=== PATIENT | female | born 1995 | race Two or more races ===

== ENCOUNTER 2017-12-30 10:19 | Emergency (ER) | payer OTHER ==
[~2017-12-30] VITALS: Ht 154.9 cm; Wt 68.5 kg
[2017-12-30] MEDS ORDERED: CEFADROXIL500 MG (10:45)
[2017-12-30] MEDS ORDERED: PRENATAL 19 TA1 EAC1 (10:45)
== END 2017-12-30 16:30 ==
LOC: ER 10:19
DX: O98.511 Other viral diseases complicating pregnancy, first trimester (principal); B34.9 Viral infection, unspecified; Z34.01 Encounter for supervision of normal first pregnancy, first trimester

== ENCOUNTER 2018-03-08 09:21 | Outpatient (CLI) | payer OTHER ==
[~2018-03-08 09:21] MED LIST: CEFADROXIL500 MG; PRENATAL 19 TA1 EAC1
== END 2018-03-09 13:00 | disposition home or self-care (01) ==
LOC: OBS/DEL 09:21 → LDR 09:22 → OBS/DEL 14:47
DX: O47.02 False labor before 37 completed weeks of gestation, second trimester (principal); Z3A.23 23 weeks gestation of pregnancy; N39.0 Urinary tract infection, site not specified

== ENCOUNTER 2018-03-28 22:51 | Outpatient (CLI) | payer OTHER | END 2018-03-29 07:27 | disposition home or self-care (01) | LOC: OBS/DEL 22:51 | DX: O60.02 Preterm labor without delivery, second trimester (principal); Z34.02 Encounter for supervision of normal first pregnancy, second trimester ==

== ENCOUNTER 2018-06-18 11:48 | Outpatient (CLI) | payer OTHER | END 2018-06-19 10:19 | disposition home or self-care (01) | LOC: OBS/DEL 11:48 | DX: O47.1 False labor at or after 37 completed weeks of gestation (principal); Z34.03 Encounter for supervision of normal first pregnancy, third trimester ==

== ENCOUNTER 2018-06-27 20:54 | Inpatient (IN) | payer OTHER ==
[~2018-06-27] VITALS: Ht 154.9 cm; Wt 77.1 kg
[2018-06-27] MEDS ORDERED: PRENATAL TABLE1 EAC1 PO (21:02)
== END 2018-06-30 16:33 | DRG 775 ==
LOC: OB/GYN 20:54 → LDR 20:54 → OB/GYN 06-28 16:56
PROC: 10E0XZZ Delivery of Products of Conception, External Approach (ICD-10-PCS; principal; 2018-06-28)
PROC: 0W8NXZZ Division of Female Perineum, External Approach (ICD-10-PCS; 2018-06-28)
PROC: 4A033R1 Measurement of Arterial Saturation, Peripheral, Percutaneous Approach (ICD-10-PCS; 2018-06-28)
PROC: 4A1HXCZ Monitoring of Products of Conception, Cardiac Rate, External Approach (ICD-10-PCS; 2018-06-28)
DX: O80 Encounter for full-term uncomplicated delivery (principal); Z3A.39 39 weeks gestation of pregnancy; Z37.0 Single live birth